=== PATIENT | female | born 1975 ===

== ENCOUNTER 2024-02-28 16:18 | Outpatient (CLI) | payer OTHER ==
[2024-02-28] MEDS ORDERED: DIATRIZOATE MEGLU/DIATRIZO SOD 30 ML BOTTLE PO ONE (16:25)
[2024-02-28] MEDS ORDERED: iohexoL-300 100 ML VIAL ONE (16:25)
[2024-02-28] MEDS: DIATRIZOATE MEGLU/DIATRIZO SOD 30 ML BOTTLE PO ONE (17:44)
[2024-02-28] MEDS: iohexoL-300 100 ML VIAL IVP ONE (17:44)
--- NOTE | 2024-02-29 14:36 | CT Report ---
PROCEDURE: Abdomen/Pelvis W INDICATIONS: EOSINOPHILIA CONTRAST: Omni 300 100ml TECHNIQUE: After the administration of intravenous contrast, a CT scan of the abdomen and pelvis was performed. Images were recorded and evaluated at appropriate window settings. Reformats: coronal and sagittal. F or radiation dose reduction, the following was used: automated exposure control, adjustment of mA and /or kV according to patient size. COMPARISON: None. FINDINGS: Image quality: Diagnostic. Lower chest: Unremarkable. Liver: Subcentimeter hypoattenuating liver lesions, too small to characterize by CT. Gallbladder: Biliary tree: No intrahepatic or extrahepatic dilation, accounting for age. Spleen: No splenomegaly. Maximum diameter of 11.3 cm. Pancreas: No pancreatic ductal dilation. Adrenals: No adrenal nodule. Kidneys and ureters: No hydronephrosis. No renal cystic lesion which requires follow up. No solid mas s. Stomach, bowel and peritoneum: No gastric or small bowel dilation. Wall thickening of the ascending c olon. No pathologic free fluid. Lymph nodes: No central or retroperitoneal adenopathy. Vessels: No infrarenal aortic aneurysm. Patent portal vein. PELVIS Reproductive organs: IUD within the central uterus. Bladder: No abnormal wall thickening, accounting for underdistention. Pelvic lymph nodes: No pelvic adenopathy by size criteria. Bones: No aggressive osseous abnormality. Other: No significant ventral or inguinal hernia. IMPRESSION: Wall thickening of the ascending colon, which could indicate infectious, inflammatory or eosinophilic colitis (uncommon). Reviewed by: Nam Mohamud MD on 02/29/2024 2:35 PM PDT Approved by: Nam Mohamud MD on 02/29/2024 2:35 PM PDT Station ID: [id number]
--- NOTE | 2024-02-29 17:07 | CT Report ---
PROCEDURE: Chest W INDICATIONS: EOSINOPHILIA CONTRAST: Omni 300 100ml TECHNIQUE: After the administration of intravenous contrast, a CT scan of the chest was performed. Images were recorded and evaluated at appropriate window settings. Reformats: axial MIP of the chest, coronal and sagittal. For radiation dose reduction, the following was used: automated exposure control, adjustme nt of mA and/or kV according to patient size. COMPARISON: None. FINDINGS: Image quality: Diagnostic. Chest wall and lower neck: No thyroid nodule which requires sonographic follow up. No breast mass. No axillary or supraclavicular adenopathy by size. Lungs and pleura: No consolidation or groundglass opacities. No pleural effusions. No pneumothorax. 2 bilateral lower lobe solid, noncalcified pulmonary nodules measuring 2 mm (4/69). Right fissure tri angular lymph node (4/57). Patent central airways. Dependent atelectasis. Mediastinum: Heart size is normal. No pericardial effusion. No large vessel abnormality. No mediastin al adenopathy by size criteria. No filling defects in the central pulmonary vasculature. Bones: No aggressive osseous abnormality. Upper Abdomen: Please see same day CT abdomen and pelvis. IMPRESSION: 1. No suspicious pulmonary nodule or consolidation. No groundglass opacities. 2. Two bilateral lower lobe solid, noncalcified pulmonary nodules measuring 2 mm. If patient is low r isk, no additional follow-up needed. If patient is high risk, consider repeat CT chest in 12 months. Reviewed by: Sue Arciniega MD on 02/29/2024 5:05 PM PDT Approved by: Sue Arciniega MD on 02/29/2024 5:05 PM PDT Station ID: [id number]
== END 2024-02-28 16:19 | disposition home or self-care (01) ==
LOC: DI 16:18
PROVIDERS: ATTEND Internal Medicine Hematology & Oncology
DX: D72.10 Eosinophilia, unspecified (principal); R91.8 Other nonspecific abnormal finding of lung field; R93.5 Abnormal findings on diagnostic imaging of other abdominal regions, including retroperitoneum
CPT/HCPCS: 71260; 74177; Q9963; Q9967